=== PATIENT | female | born 1940 | race Caucasian/White ===

== ENCOUNTER 2017-05-10 09:00 | Inpatient (IN) | payer OTHER ==
[~2017-05-10] VITALS: Ht 162.6 cm; Wt 66.0 kg
[2017-05-10] MEDS ORDERED: LEVO25TA7 PO (09:08)
[2017-05-10] MEDS ORDERED: SPIR25TA4 PO (09:08)
[2017-05-10] MEDS ORDERED: FURO20TA4 PO (09:08)
[2017-05-10] MEDS ORDERED: LACT10SO6 PO (09:10)
[2017-05-10] MEDS ORDERED: AMLO2.5T45 PO (09:10)
[2017-05-10 09:55] LABS: BG BASE EXCESS -0.4 mmol/L (-2.0-2.0); BG CARBOXYHEMOGLOBIN 0.6 % (0.5-1.5); BG DEOXYHEMOGLOBIN 3.4 % (0.0-5.0); BG HCO3 ACT 21.3 mmol/L (22.0-26.0); BG METHEMOGLOBIN 0.3 % (0.0-1.5); BG OXYGEN SATURATION 96.6 % (92.0-98.5); BG OXYHEMOGLOBIN 95.7 % (94.0-97.0); BG PCO2 25.8 mmHg (35.0-45.0); BG PH 7.535 (7.350-7.450); BG PO2 85.4 mmHg (75.0-100.0); BG SAMPLE SITE RIGHT RADIAL; BG TOTAL HEMOGLOBIN 10.2 g/dL (12.0-18.0); BG VENT MODE ROOM AIR
[2017-05-10 10:37] LABS: BASOPHILS % 0.8 % (0.0-2.0); EOSINOPHILS % 1.1 % (0.0-5.0); HEMATOCRIT. 27.3 % (36.0-48.0); HEMOGLOBIN. 9.8 g/dL (12.0-16.0); LYMPHOCYTES % 11.2 % (20.0-50.0); MEAN CORPUSCULAR HEMOGLOBIN 37.4 pg (28.0-32.0); MEAN CORPUSCULAR VOLUME 104.5 fL (81.0-99.0); MONOCYTES % 14.3 % (2.0-8.0); NEUTROPHILS % 72.6 % (40.0-76.0); RED BLOOD CELL COUNT 2.61 mill/uL (4.2-5.4); RED CELL DISTRIBUTION WIDTH 16.8 % (11.6-14.6)
[2017-05-10 10:46] LABS: INR 1.6; PROTHROMBIN TIME 16.7 sec
[2017-05-10 10:50] LABS: AMMONIA 111 uMol/L (<32)
[2017-05-10 10:55] LABS: CARBON DIOXIDE 24 mEq/L (21-32); CHLORIDE 95 mEq/L (98-107); CREATINE KINASE 27 IU/L (26-192); TROPONIN I < 0.02 ng/mL (0.00-0.04)
[2017-05-10] MEDS ORDERED: SODIUM CHLORIDE 0.9% 1,000 ML IV ONE (11:00)
[2017-05-10] MEDS ORDERED: LACTULOSE 20G/30ML UDC NG ONE (11:00)
[2017-05-10] MEDS ORDERED: PHYTONADIONE 10MG/ML AMP SUBCUT ONE (11:00)
[2017-05-10 11:04] LABS: PLATELET ESTIMATE DECREASED
[2017-05-10 11:05] LABS: MEAN PLATELET VOLUME 8.3 fl (7.4-10.4); PLATELET 84 x1000/uL (130-400)
[2017-05-10] MEDS ORDERED: KETOROLAC 30MG/ML VIAL IV ONE (11:15)
[2017-05-10 16:39] VITALS: BP 104/47
[2017-05-10 17:00] VITALS: BP 125/58
[2017-05-10 18:00] VITALS: BP 129/64
[2017-05-10] MEDS ORDERED: SODIUM CHLORIDE 0.9% 1,000 ML IV SCH (19:30)
[2017-05-10 20:00] VITALS: BP 130/62
[2017-05-10] MEDS: LACTULOSE 20G/30ML UDC PO SCH (21:59)
[2017-05-10 22:00] VITALS: BP 116/66
[2017-05-10] MEDS ORDERED: NADO20TA12 PO (23:19)
[2017-05-10] MEDS ORDERED: ACETAMINOPHEN 650MG/20.3ML UDC PO PRN (23:30)
[2017-05-11] VITALS (11 sets, daily range): BP systolic 113–142; BP diastolic 53–75
[2017-05-11] MEDS: LACTULOSE 20G/30ML UDC PO SCH ×5 (00:53→16:22)
[2017-05-11] MEDS ORDERED: RIFAXIMIN 550 MG TABLET PO SCH (11:57)
[2017-05-11 13:23] LABS: HEMOGLOBIN. 9.7 g/dL (12.0-16.0); MEAN CORPUSCULAR HEMOGLOBIN 36.6 pg (28.0-32.0); MEAN CORPUSCULAR VOLUME 105.4 fL (81.0-99.0); PLATELET 84 x1000/uL (130-400); RED BLOOD CELL COUNT 2.66 mill/uL (4.2-5.4); RED CELL DISTRIBUTION WIDTH 17.6 % (11.6-14.6)
[2017-05-11 13:52] LABS: AMMONIA 38 uMol/L (<32)
[2017-05-11 13:56] LABS: CARBON DIOXIDE 20 mEq/L (21-32); CHLORIDE 99 mEq/L (98-107)
[2017-05-11 14:04] LABS: PLATELET ESTIMATE DECREASED
[2017-05-11 15:24] LABS: CLARITY URINE CLOUDY (CLEAR); COLOR URINE ORANGE (YELLOW); GLUCOSE URINE NEGATIVE (NEGATIVE); KETONES URINE TRACE (NEGATIVE); LEUKOCYTE ESTERASE URINE 2+ (NEGATIVE); NITRITE URINE NEGATIVE (NEGATIVE); OCCULT BLOOD URINE 1+ (NEGATIVE); PROTEIN URINE NEGATIVE (NEGATIVE); SPECIFIC GRAVITY URINE 1.018 (1.005-1.030); UROBILINOGEN URINE 0.2 E.U./dL (0.2-1.0)
[2017-05-11 15:50] LABS: *AMPHETAMINES SCREEN URINE NEGATIVE (NEGATIVE); *BARBITURATES SCREEN URINE NEGATIVE (NEGATIVE); *BENZODIAZEPINES SCREEN URINE NEGATIVE (NEGATIVE); *COCAINE SCREEN URINE NEGATIVE (NEGATIVE); CANNABINOID URINE SCREEN NEGATIVE (NEGATIVE); METHADONE URINE SCREEN NEGATIVE (NEGATIVE); OPIATES URINE SCREEN NEGATIVE (NEGATIVE); PHENCYCLIDINE URINE SCREEN NEGATIVE (NEGATIVE)
[2017-05-11] MEDS ORDERED: CEFTRIAXONE 1 G PREMIX 50 ML IV SCH (16:45)
[2017-05-11] MEDS ORDERED: LEVOFLOXACIN 500MG PREMIX 100 ML IV SCH (17:00)
[2017-05-12] MEDS ORDERED: LEVOFLOXACIN 250MG PREMIX 50 ML IV SCH (16:00)
== END 2017-05-11 19:21 | disposition short-term general hospital (02) | DRG 433 ==
LOC: ER 09:00 → EDBEDREQ 10:04 → 5EST 13:13 → EDBEDREQ 13:17 → EDBEDREQSVC 13:17 → ENRESERV 13:42
PROVIDERS: ADMIT Family Medicine; ATTEND Family Medicine
DX: K74.60 Unspecified cirrhosis of liver (principal); E87.1 Hypo-osmolality and hyponatremia; K72.90 Hepatic failure, unspecified without coma; I10 Essential (primary) hypertension; Z88.9 Allergy status to unspecified drugs, medicaments and biological substances; Z86.19 Personal history of other infectious and parasitic diseases; Z88.0 Allergy status to penicillin; Z88.2 Allergy status to sulfonamides; Z88.8 Allergy status to other drugs, medicaments and biological substances; Z79.899 Other long term (current) drug therapy
CPT/HCPCS: 36415; 36600; 51702; 70450; 71010; 76700; 80053; 80076; 80305; 81001; 82140; 82375; 82550; 82805; 82962; 83605; 83690; 83880; 83930; 83935; 84443; 84484; 85025; 85610; 86850; 86900; 96361; 96374; 99291; J1885; J1956; J3430; J7030; A4315